=== PATIENT | female | born 1940 | race Caucasian/White ===

== ENCOUNTER 2017-04-15 11:19 | Emergency (ER) | payer MEDICARE ==
[~2017-04-15] VITALS: Ht 162.6 cm; Wt 84.0 kg
[~2017-04-15 11:19] MED LIST: AMLO2.5T OR; ASPI81TA21 PO; ATEN-104 PO; LISI-360 PO; LORA1TAB PO; MAXZ25 PO; MELO7.5T4 PO; ZOLP10TA3 OR
[2017-04-15 11:41] VITALS: BP 146/67; PULSE 67; RESP 16; TEMP 97.6; O2SAT 95
[2017-04-15] MEDS ORDERED: MOBI7.5T PO (11:52)
[2017-04-15] MEDS ORDERED: LORA1TAB12 PO (11:52)
[2017-04-15] MEDS ORDERED: ASPI81CH CHEW (11:52)
[2017-04-15] MEDS ORDERED: LISI10TA3 PO (11:52)
[2017-04-15] MEDS ORDERED: ATEN100T PO (11:52)
[2017-04-15] MEDS ORDERED: TRIA37.5 PO (11:52)
[2017-04-15] MEDS ORDERED: AMLO5TAB2 PO (11:52)
[2017-04-15] MEDS ORDERED: ONDANSETRON HCL 4 MG/2 ML VIAL IVP ONE (12:00)
[2017-04-15] MEDS ORDERED: MORPHINE SULFATE 4 MG/ML INJ IV PUSH ONE (12:00)
[2017-04-15] MEDS ORDERED: SODIUM CHLORIDE 0.9% FLUSH 10 ML FLUSH IV FLUSH PRN (12:00)
[2017-04-15] MEDS ORDERED: SODIUM CHLORID 0.9% 500 ML INJ 500 ML IV ONE (12:00)
--- NOTE | 2017-04-15 12:07 | PD ---
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 Patient states that she has been taking doxycycline as well as pain medications but when she called her plastic surgeon to tell her that she was having nausea the doxycycline was discontinued and she still having some nausea and vomiting. Denies any fevers denies any abdominal pain. PFSH Past Medical History Anxiety: Yes Cancer: Yes (LEFT BREAST) Cardiovascular Problems: No Diabetes: No Endocrine: No Genitourinary: No Hepatitis: No Hiatal Hernia: No Hypertension: Yes Immune Disorder: No Musculoskeletal: No Neurologic: No Psychiatric: Yes Reproductive: No Respiratory: No Thyroid Disease: No ?: Not Past Surgical History Abdominal Surgery: Yes (DILATATION AND CURRETTAGE) AICD: No Body Medical Devices: LEFT BREAST MARKER Cardiac Surgery: No Ear Surgery: No Eye Surgery: No Genitourinary Surgery: No Gynecologic Surgery: Yes (D&C; HYSTERECTOMY WITH OOPHORECTOMY) Hysterectomy: Yes Joint Replacement: No Neurologic Surgery: No Oral Surgery: No Pacemaker: No Thoracic Surgery: Yes Social History Alcohol Use: Yes (OCCAS) Tobacco Use: No Substance Use: No Allergies-Medications (Allergen,Severity, Reaction): Coded Allergies: Bactrim (Verified Allergy, Severe, 04/15/17) Levofloxacin (Verified Allergy, Severe, 04/15/17) Sulfa (Verified Allergy, Mild, Hives, 04/15/17) Zithromax (Verified Allergy, Mild, 04/15/17) DIARRHEA Reported Meds & Prescriptions Reported Meds & Active Scripts Active Phenergan (Promethazine HCl) 25 Mg Tablet 25 Mg PO ONCE Reported Mobic (Meloxicam) 7.5 Mg Tab 1-2 Tab PO DAILY PRN Lorazepam 1 Mg Tab 1 Mg PO BID PRN Aspirin 81 Mg Chew 81 Mg CHEW DAILY Triamterene-Hydrochlorothiazide 37.5-25 Mg Tab 1 Tab PO DAILY Amlodipine (Amlodipine Besylate) 5 Mg Tab 5 Mg PO DAILY Lisinopril 10 Mg Tab 10 Mg PO BID Atenolol 100 Mg Tab 100 Mg PO DAILY Review of Systems Except as stated in HPI: all other systems reviewed are Neg Physical Exam Narrative GENERAL: Well-developed well-nourished no apparent distress. SKIN: Extensive surgical lacerations to the forehead all of which are well approximated. There is no discharge wounds are clean dry and intact, no cellulitis observed. HEAD: Atraumatic. Normocephalic. EYES: Pupils equal and round. No scleral icterus. No injection or drainage. ENT: No nasal bleeding or discharge. Mucous membranes pink and moist. NECK: Trachea midline. No JVD. CARDIOVASCULAR: Regular rate and rhythm. No murmur appreciated. RESPIRATORY: No accessory muscle use. Clear to auscultation. Breath sounds equal bilaterally. GASTROINTESTINAL: Abdomen soft, non-tender, nondistended. Hepatic and splenic margins not palpable. No rebound no percussive tenderness. MUSCULOSKELETAL: No obvious deformities. No clubbing. No cyanosis. No edema. NEUROLOGICAL: Awake and alert. No obvious cranial nerve deficits. Motor grossly within normal limits. Normal speech. PSYCHIATRIC: Appropriate mood and affect; insight and judgment normal. Data Data Last Documented VS Vital Signs Date Time Temp Pulse Resp B/P Pulse Ox O2 Delivery O2 Flow Rate FiO2 04/15/17 13:52 63 18 147/78 96 Room Air 04/15/17 11:41 97.6 Orders Complete Blood Count With Diff (04/15/17 11:52) Comprehensive Metabolic Panel (04/15/17 11:52) Lipase (04/15/17 11:52) Prothrombin Time / Inr (Pt) (04/15/17 11:52) Act Partial Throm Time (Ptt) (04/15/17 11:52) Urinalysis - C+S If Indicated (04/15/17 11:52) Iv Access Insert/Monitor (04/15/17 11:52) Ecg Monitoring (04/15/17 11:52) Oximetry (04/15/17 11:52) Ondansetron Inj (Zofran Inj) (04/15/17 12:00) Sodium Chloride 0.9% Flush (Ns Flush) (04/15/17 12:00) Electrocardiogram (04/15/17 11:52) Sodium Chlorid 0.9% 500 Ml Inj (Ns 500 M (04/15/17 12:00) Morphine Inj (Morphine Inj) (04/15/17 12:30) Ct Abd/Pel W Iv Contrast(Rout) (04/15/17 ) Iohexol 350 Inj (Omnipaque 350 Inj) (04/15/17 13:12) Promethazine (Phenergan) (04/15/17 14:00) Labs Laboratory Tests Test 04/15/17 04/15/17 12:00 12:10 Urine Collection Type CLEAN CATCH Urine Color YELLOW Urine Turbidity CLEAR Urine pH 7.5 Urine Specific Banner 1.015 Urine Protein 30 mg/dL Urine Glucose (UA) NEG mg/dL Urine Ketones NEG mg/dL Urine Occult Blood NEG Urine Nitrite NEG Urine Bilirubin NEG Urine Leukocyte Esterase TRACE Urine RBC 0-3 /hpf Urine WBC 3-5 /hpf Urine Squamous Epithelial 0-5 /hpf Cells Urine Amorphous Sediment FEW Microscopic Urinalysis Comment CULT NOT INDICATED Urine Collection Time 12:00 White Blood Count 12.6 TH/MM3 Red Blood Count 4.65 MIL/MM3 Hemoglobin 14.6 GM/DL Hematocrit 43.0 % Mean Corpuscular Volume 92.4 FL Mean Corpuscular Hemoglobin 31.3 PG Mean Corpuscular Hemoglobin 33.9 % Concent Red Cell Distribution Width 13.3 % Platelet Count 395 TH/MM3 Mean Platelet Volume 7.5 FL Neutrophils (%) (Auto) 79.7 % Lymphocytes (%) (Auto) 13.4 % Monocytes (%) (Auto) 6.4 % Eosinophils (%) (Auto) 0.3 % Basophils (%) (Auto) 0.2 % Neutrophils # (Auto) 10.1 TH/MM3 Lymphocytes # (Auto) 1.7 TH/MM3 Monocytes # (Auto) 0.8 TH/MM3 Eosinophils # (Auto) 0.0 TH/MM3 Basophils # (Auto) 0.0 TH/MM3 CBC Comment DIFF FINAL Differential Comment Prothrombin Time 11.4 SEC Prothromb Time International 1.0 RATIO Ratio Activated Partial 27.3 SEC Thromboplast Time Sodium Level 137 MEQ/L Potassium Level 3.0 MEQ/L Chloride Level 96 MEQ/L Carbon Dioxide Level 32.8 MEQ/L Anion Gap 8 MEQ/L Blood Urea Nitrogen 14 MG/DL Creatinine 0.90 MG/DL Estimat Glomerular Filtration 61 ML/MIN Rate Random Glucose 130 MG/DL Calcium Level 10.0 MG/DL Total Bilirubin 0.7 MG/DL Aspartate Amino Transf 26 U/L (AST/SGOT) Alanine Aminotransferase 31 U/L (ALT/SGPT) Alkaline Phosphatase 77 U/L Total Protein 8.6 GM/DL Albumin 4.4 GM/DL Lipase 87 U/L MDM Medical Decision Making Medical Screen Exam Complete: Yes Emergency Medical Condition: Yes Differential Diagnosis Cellulitis unlikely, acute abdomen unlikely, electro-light abnormality, medication reaction. Narrative Course Patient roomed emergency department, basic labs were sent and do show a minimally elevated white blood cell count with minimal left shift. Given her age and this finding I think it CAT scan of her abdomen is indicated: Last 24 hours Impressions Abdomen/Pelvis CT 04/15/17 0000 Signed Impressions: Service Date/Time: Saturday, April 15, 2017 13:00 - CONCLUSION: 1. Moderate hepatic steatosis. 2. Status post hysterectomy. 3. Minimal bibasilar atelectasis. Roberto Hamilton MD Discuss results with the patient and she is reassured. Likely some medication reaction and recommended that she continue avoiding doxycycline and use the pain medicine she's been prescribed sparingly. She is verbalizing agreement. She is feeling better after interventions in the emergency department in stable for discharge. Discussed follow-up with the plastic surgeon by phone in the morning her primary care physician. Discussed return to ED criteria. Diagnosis Primary Impression: Nausea & vomiting Qualified Code: R11.2 - Nausea and vomiting, intractability of vomiting not specified, unspecified vomiting type Med/Other Pt SpecificInfo: Prescription(s) given Scripts Promethazine (Phenergan)25 Mg [id number] Mg PO ONCE #20 TAB Ref 0 Prov:Yunior Fleming MD 04/15/17 Disposition: 01 DISCHARGE HOME Condition: Stable Yunior Fleming MD Apr 15, 2017 12:07
[2017-04-15 12:17] LABS: AUTOMATED NEUTROPHIL # 10.1 TH/MM3 (1.8-7.7); BASOPHIL % 0.2 % (0.0-2.0); EOSINOPHIL % 0.3 % (0.0-4.0); HEMO FLAGS DIFF FINAL; LYMPH % 13.4 % (9.0-44.0); LYMPHOCYTE # 1.7 TH/MM3 (1.0-4.8); MEAN CELL VOLUME 92.4 FL (80.0-100.0); MEAN CORPUSCULAR HEMOGLOBIN 31.3 PG (27.0-34.0); MEAN CORPUSCULAR HGB CONC 33.9 % (32.0-36.0); MONO % 6.4 % (0.0-8.0); NEUT % 79.7 % (16.0-70.0); PLATELET COUNT 395 TH/MM3 (150-450); RED BLOOD COUNT 4.65 MIL/MM3 (4.00-5.30); RED CELL DISTRIBUTION WIDTH 13.3 % (11.6-17.2); WHITE BLOOD COUNT 12.6 TH/MM3 (4.0-11.0)
[2017-04-15 12:21] LABS: BLOOD, URINE NEG (NEG); GLUCOSE,URINE NEG (NEG); KETONE, URINE NEG (NEG); NITRITE,URINE NEG (NEG); PH, URINE 7.5 (5.0-8.5)
[2017-04-15 12:28] LABS: CHLORIDE 96 MEQ/L (98-107); SODIUM (NA) 137 MEQ/L (136-145)
[2017-04-15 12:28] LABS: METHOD OF COLLECTION CLEAN CATCH; URINE COLOR YELLOW (YELLW/STRAW)
[2017-04-15 12:29] LABS: COMMENT (UR) CULT NOT INDICATED; CULTURE IF INDICATED CULT NOT INDICATED; RBC, URINE 0-3 /hpf (0-3); SQUAMOUS EPITHELIAL CELL URINE 0-5 /hpf (0-5)
[2017-04-15] MEDS ORDERED: MORPHINE SULFATE 8 MG/ML INJ IV PUSH ONE (12:30)
[2017-04-15 12:32] VITALS: RESP 16; O2SAT 94
[2017-04-15 12:32] LABS: ANION GAP 8 MEQ/L (5-15); APTT (PATIENT) 27.3 SEC (24.3-30.1); BICARBONATE 32.8 MEQ/L (21.0-32.0); BLOOD UREA NITROGEN 14 MG/DL (7-18); PROTHROMBIN TIME - PATIENT 11.4 SEC (9.8-11.6)
[2017-04-15 12:34] VITALS: BP 149/90; PULSE 64; RESP 16; O2SAT 95
[2017-04-15 12:34] LABS: ALT (GPT) 31 U/L (10-53); AST (GOT) 26 U/L (15-37); GLOMERULAR FILTRATION RATE 61 ML/MIN (>89)
[2017-04-15 12:36] LABS: TOTAL BILIRUBIN ADULT 0.7 MG/DL (0.2-1.0)
[2017-04-15 12:37] LABS: ALKALINE PHOSPHATASE 77 U/L (45-117)
[2017-04-15] MEDS ORDERED: IOHEXOL 350 MG/ML 10 ML VIAL (for RAD DIAG) IV ONE (13:12)
--- NOTE | 2017-04-15 13:32 | RADRPT ---
EXAM DATE/TIME: 04/15/2017 13:00 [facility] COMPARISON: No previous studies available for comparison. INDICATIONS : Nausea and vomiting since having basal cell removed on forehead yesterday. IV CONTRAST: 96 cc Omnipaque 350 (iohexol) IV ORAL CONTRAST: No oral contrast ingested. RADIATION DOSE: 19.86 CTDIvol (mGy) MEDICAL HISTORY : Hypertension. Carcinoma, breast. SURGICAL HISTORY : Hysterectomy. ENCOUNTER: Initial ACUITY: 2 days PAIN SCALE: 0/10 LOCATION: abdomen/pelvis TECHNIQUE: Volumetric scanning of the abdomen and pelvis was performed. Using automated exposure control and ad justment of the mA and/or kV according to patient size, radiation dose was kept as low as reasonably achievable to obtain optimal diagnostic quality images. DICOM format image data is available electro nically for review and comparison. FINDINGS: LOWER LUNGS: Minimal bibasilar densities. LIVER: Decrease attenuation without lesion. There is no dilation of the biliary tree. No calcified gallsto raghu. SPLEEN: Normal size without lesion. PANCREAS: Within normal limits. KIDNEYS: Normal in size and shape. Right kidney malrotated. There is no mass, stone or hydronephrosis. ADRENAL GLANDS: Within normal limits. VASCULAR: There is no aortic aneurysm. BOWEL/MESENTERY: The stomach, small bowel, and colon demonstrate no acute abnormality. There is no free intraperitone al air or fluid. ABDOMINAL WALL: Within normal limits. RETROPERITONEUM: There is no lymphadenopathy. BLADDER: No wall thickening or mass. REPRODUCTIVE: Uterus surgically absent. INGUINAL: There is no lymphadenopathy or hernia. MUSCULOSKELETAL: Degenerative changes in the thoracolumbar spine. Sclerotic focus left iliac bone likely bone island. CONCLUSION: 1. Moderate hepatic steatosis. 2. Status post hysterectomy. 3. Minimal bibasilar atelectasis. Roberto Hamilton MD on April 15, 2017 at 13:26 Board Certified Radiologist. This report was verified electronically.
[2017-04-15] MEDS ORDERED: PROM25TA10 PO (13:45)
[2017-04-15 13:52] VITALS: BP 147/78; PULSE 63; RESP 18; O2SAT 96
[2017-04-15] MEDS ORDERED: PROMETHAZINE HCL 25 MG TAB PO ONE (14:00)
--- NOTE | 2017-04-16 10:31 | EKG ---
Date Performed: 04/15/2017 Time Performed: 12:05:16 PTAGE: 77 years EKG: Sinus rhythm MINIMAL VOLTAGE CRITERIA FOR LVH, CONSIDER NORMAL VARIANT MINIMAL ST DEPRESSION BORDERLINE ECG NO PREVIOUS TRACING DOCTOR: Mendez Reed Interpretating Date/Time 04/16/2017 10:30:23
== END 2017-04-15 14:17 | disposition home or self-care (01) ==
LOC: PHED 11:19
DX: R11.2 Nausea with vomiting, unspecified (principal); I10 Essential (primary) hypertension; R94.31 Abnormal electrocardiogram [ECG] [EKG]; Z98.890 Other specified postprocedural states; Z86.59 Personal history of other mental and behavioral disorders; Z85.828 Personal history of other malignant neoplasm of skin; Z85.3 Personal history of malignant neoplasm of breast
CPT/HCPCS: 74177; 80053; 81001; 83690; 85025; 85610; 85730; 93005; 96361; 96374; 96375; 99285; J2270; J2405; J7040; Q0169; Q9967